=== PATIENT | female | born 1955 | race Caucasian/White ===

== ENCOUNTER → 2016-05-26 | Outpatient (CLI) | payer OTHER ==
--- NOTE | 2016-05-26 13:17 | CT ---
EXAMINATION TYPE: CT chest w con DATE OF EXAM: 05/26/2016 12:28 PM COMPARISON: 06/05/2014 HISTORY: cough, SOB, history of melanoma CT DLP: 629 mGycm, Automated exposure control for dose reduction was used. CONTRAST: Performed injected with 100 ml mL of Omnipaque 300. TECHNIQUE: Axial images were obtained at 5 mm thick sections. Reconstructed images are reviewed on [facility] computer in the coronal plane. FINDINGS: Portion of the thyroid visualized is normal. No suspicious lung nodules or focal infiltrates are present. No enlarged mediastinal or hilar adenopathy is evident. The ascending aorta diameter at the level o f the main pulmonary artery is 3.7 cm. The main pulmonary artery diameter at the bifurcation is 3.[address] sections are obtained through the upper abdomen. There is mild fatty infiltration within [facility] liver. Upper abdomen is otherwise unremarkable. There is a small splenule present. Scoliosis is present. IMPRESSIONS: 1. No suspicious acute changes.
== END | disposition home or self-care (01) ==
LOC: RADCTMAIN 11:59
PROVIDERS: ATTEND Internal Medicine Hematology & Oncology
DX: R05 Cough (principal); R06.02 Shortness of breath
CPT/HCPCS: 71260; Q9967

== ENCOUNTER 2017-01-05 11:58 | Day surgery (SDC) | payer OTHER ==
[2017-01-04 08:43] VITALS: BMI 33.2
[~2017-01-05 11:58] MED LIST: LACTATED RINGERS 1,000 ML IV SCH; LIDOCAINE 1% 20 ML VIAL (10MG/ML) FOR IV START INTRADERMA PRN
[2017-01-05 12:32] VITALS: RESP 16; TEMP 97.7
[2017-01-05] MEDS ORDERED: PROPOFOL 10 MG/ML 20 ML VIAL IV ONE (13:30)
--- NOTE | 2017-01-05 13:46 | P.PCN ---
Date of Procedure: 01/05/17 Procedure(s) Performed: BRIEF HISTORY: Patient is a 61-year-old pleasant female, scheduled for an elective colonoscopy as a part of evaluation of prior history of colon polyps. PROCEDURE PERFORMED: Colonoscopy. PREOPERATIVE DIAGNOSIS: History of colon polyps IV sedation per Anesthesia. PROCEDURE: After informed consent was obtained, the patient, was brought into the endoscopy unit. IV sedation was administered by Anesthesia under continuous monitoring. Digital rectal examination was normal. Initially the Olympus CF- 160 flexible video colonoscope was then inserted in the rectum, gradually advanced into the cecum without any difficulty. Careful examination was performed as the scope was gradually being withdrawn. Ileocecal valve and the appendiceal orifice were visualized and appeared normal. Prep was fair. Mucosa of the cecum, ascending colon, transverse colon, descending colon, sigmoid colon , and rectum appeared normal. Retroflexion was performed in the rectum and no lesions were seen. The patient tolerated the procedure well. IMPRESSION: Normal-appearing colon from rectum to cecum with no evidence of colorectal neoplasia RECOMMENDATIONS: Findings of this examination were discussed with the patient as well as a family. She was advised to have a repeat screening surveillance colonoscopy in 5 years from now because of the prior history of colon polyps.
[2017-01-05 14:03] VITALS: BP 144/88; PULSE 73
== END 2017-01-05 14:24 | disposition home or self-care (01) ==
LOC: ORWHC2ENDO 11:58
PROVIDERS: ATTEND Internal Medicine Gastroenterology
DX: Z12.11 Encounter for screening for malignant neoplasm of colon (principal); Z86.010 Personal history of colon polyps; I10 Essential (primary) hypertension; M06.9 Rheumatoid arthritis, unspecified; Z79.82 Long term (current) use of aspirin; Z79.899 Other long term (current) drug therapy
CPT/HCPCS: J2704; G0105

== ENCOUNTER → 2017-12-23 | Outpatient (CLI) | payer OTHER ==
--- NOTE | 2017-12-23 09:18 | MR ---
EXAMINATION TYPE: MR cspine/lspine wo con DATE OF EXAM: 12/23/2017 COMPARISON: Prior MRI lumbar spine June 07, 2014. Cervical spine x-ray February 29, 2012 HISTORY: Cervicalgia and Low back pain per order. Back pain with difficulty walking for years per pat ient with pain going into bilateral CALVES. Headache and neck pain causing pain or weakness into righ t arm for years per patient. TECHNIQUE: Multiplanar, multisequence imaging of the cervical lumbar spine are performed without IV c ontrast. FINDINGS: C-SPINE: Motion artifact degradation is present FINDINGS: Sagittal images of the cervical spine show the craniocervical junction to appear within nor mal limits. The cervical and upper thoracic spinal cord is normal in course, caliber, and signal. V ertebral alignment is anatomic. There is moderate disc space narrowing C5-C6 level redemonstrated. T he vertebral body and intravertebral disk heights otherwise are normal. Posterior disc herniation C5- C6 and C6-C7 level effacing anterior thecal sac are seen on sagittal images. The bone marrow signal intensity is within normal limits. No significant spurring is present. Axial images show the C2-C3, C3-C4, C4-C5 levels all to appear within normal limits. Axial images at the C5-C6 level show broad-based posterior disc protrusion effacing anterior thecal s ac and causing moderate bilateral neural foraminal narrowing. Axial images at C6-C7 level show broad-based posterior disc protrusion mildly effacing anterior theca l sac and causing mild to moderate left greater than right bilateral neural foraminal narrowing. Axial images at C7-T1 level are felt within normal limits. Thyroid gland is overall small in size particularly left thyroid lobe with subcentimeter nodule on th e left suspected axial image 13. IMPRESSION: Degenerative changes C5-C6 and C6-C7 level as detailed above. L-SPINE: Survey images redemonstrates dextroconvex scoliosis centered near thoracolumbar junction not signific antly changed. Sagittal images of the lumbar spine show vertebral body heights to remain satisfactory . There is straightening of lumbar spine redemonstrated on sagittal images. Multilevel disc desiccati on with mild disc space narrowing L3-L4 and moderate disc space narrowing L4-L5 levels is redemonstra ronald. Posterior disc herniations L3-L4 through L5-S1 level are redemonstrated on sagittal images. Ther e is heterogeneous Modic type II degenerative change anterior L4-L5 level redemonstrated. The conus m edullaris remains normal in position and signal ending superior L1 level. Axial images show the T12-L1, L1-L2, and L2-L3 levels all to remain within normal limits. Axial images at the L3-L4 level show mild facet degenerative changes bilaterally. There is mild to mo derate broad disc bulge effacing anterior thecal sac. There is mild left-sided anterior inferior neur al foraminal narrowing. Right-sided neural foramen is patent. No significant change from prior. Axial images at L4-L5 level show moderate broad disc bulge mildly effacing anterior thecal sac. There is mild facet degenerative changes bilaterally. There is asymmetric mild to moderate right-sided ant erior inferior neural foraminal narrowing seen. Left-sided neural foramen is patent. No significant c hange from prior. Axial images at L5-S1 level show mild facet degenerative changes bilaterally. There is central disc p rotrusion seen. Spinal canal is preserved. Bilateral neural foramina are patent. Paraspinal muscle bulk is maintained. No suspicious retroperitoneal findings are seen. IMPRESSION: Multilevel degenerative changes in the mid to lower lumbar spine as detailed above withou t significant change or progression from prior MRI.
== END ==
LOC: RADMRIMAIN 08:04
PROVIDERS: ATTEND Psychiatry & Neurology Neurology
DX: M47.816 Spondylosis without myelopathy or radiculopathy, lumbar region (principal); M47.812 Spondylosis without myelopathy or radiculopathy, cervical region
CPT/HCPCS: 72141; 72148

== ENCOUNTER → 2018-01-09 | Outpatient (CLI) | payer OTHER ==
--- NOTE | 2018-01-11 11:33 | MM ---
Reason for exam: screening (asymptomatic). Last mammogram was performed 1 year ago. History: Patient is postmenopausal and has history of other cancer at age 44. Family history of breast cancer in maternal aunt. Benign left breast aspiration of the left breast, January 27, 2012. Benign left US cyst aspiration of the left breast, January 15, 2011. Benign right US cyst aspiration of the right breast, November 17, 2007. Took estrogen for 1 year beginning at age 54. Physical Findings: A clinical breast exam by your physician is recommended on an annual basis and results should be correlated with mammographic findings. MG Screening Mammo w CAD Bilateral CC and MLO view(s) were taken. Prior study comparison: December 31, 2016, bilateral MG screening mammo w CAD. November 04, 2015, bilateral MG screening mammo w CAD. The breast tissue is heterogeneously dense. This may lower the sensitivity of mammography. There is chronic nodularity in the right breast. No significant changes when compared with prior studies. ASSESSMENT: Negative, BI-RAD 1 RECOMMENDATION: Routine screening mammogram of both breasts in 1 year.
== END | disposition home or self-care (01) ==
LOC: RADMAMWWP 13:16
PROVIDERS: ATTEND Internal Medicine Hematology & Oncology
DX: Z12.31 Encounter for screening mammogram for malignant neoplasm of breast (principal)
CPT/HCPCS: 77067

== ENCOUNTER → 2018-06-06 | Outpatient (CLI) | payer OTHER ==
--- NOTE | 2018-06-06 15:08 | XR ---
EXAMINATION TYPE: XR chest 2V DATE OF EXAM: 06/06/2018 COMPARISON: Chest x-ray October 28, 2015 HISTORY: Malignant melanoma. TECHNIQUE: Frontal and lateral views of the chest are obtained. FINDINGS: There is no focal air space opacity, pleural effusion, or pneumothorax seen. The cardiac silhouette size is within normal limits. The osseous structures remain demineralized. Underlying sc oliosis centered in the upper lumbar spine is redemonstrated. There is old fracture posterior lateral right seventh rib redemonstrated. IMPRESSION: No acute cardiopulmonary process. No significant change from prior chest x-ray.
== END | disposition home or self-care (01) ==
LOC: RADXRMAIN 14:14
PROVIDERS: ATTEND Internal Medicine Hematology & Oncology
DX: C43.9 Malignant melanoma of skin, unspecified (principal); D69.6 Thrombocytopenia, unspecified; E78.5 Hyperlipidemia, unspecified; I10 Essential (primary) hypertension
CPT/HCPCS: 71046

== ENCOUNTER → 2019-01-15 | Outpatient (CLI) | payer MEDICARE, OTHER ==
--- NOTE | 2019-01-17 10:54 | MM ---
Reason for exam: screening (asymptomatic). Last mammogram was performed 1 year ago. History: Patient is postmenopausal and has history of other cancer at age 44. Family history of breast cancer in maternal aunt. Benign left breast aspiration of the left breast, January 27, 2012. Benign left US cyst aspiration of the left breast, January 15, 2011. Benign right US cyst aspiration of the right breast, November 17, 2007. Took estrogen for 1 year beginning at age 54. Physical Findings: A clinical breast exam by your physician is recommended on an annual basis and results should be correlated with mammographic findings. MG Screening Mammo w CAD Bilateral CC and MLO view(s) were taken. Prior study comparison: January 09, 2018, bilateral MG screening mammo w CAD. December 31, 2016, bilateral MG screening mammo w CAD. The breast tissue is heterogeneously dense. This may lower the sensitivity of mammography. No significant changes when compared with prior studies. ASSESSMENT: Negative, BI-RAD 1 RECOMMENDATION: Routine screening mammogram of both breasts in 1 year.
== END | disposition home or self-care (01) ==
LOC: RADMAMWWP 07:55
PROVIDERS: ATTEND Internal Medicine Hematology & Oncology
DX: Z12.31 Encounter for screening mammogram for malignant neoplasm of breast (principal)
CPT/HCPCS: 77067

== ENCOUNTER → 2019-11-22 | Outpatient (CLI) | payer MEDICARE, OTHER ==
--- NOTE | 2019-11-22 18:26 | XR ---
EXAMINATION TYPE: XR chest 2V DATE OF EXAM: 11/22/2019 CLINICAL HISTORY: Essential hypertension. Chronic cough. TECHNIQUE: Frontal and lateral views of the chest are obtained. COMPARISON: Chest radiograph 06/06/2018 FINDINGS: The cardiomediastinal silhouette is within normal limits for size. There is tortuous cours e of the thoracic aorta redemonstrated. Pulmonary vasculature is normal. There is no focal air space opacity, pleural effusion, or pneumothorax seen. There is dextroscoliotic curvature of the thoracolum bar spine. IMPRESSION: No acute cardiopulmonary process.
== END | disposition home or self-care (01) ==
LOC: RADXRMAIN 10:27
PROVIDERS: ATTEND Internal Medicine Hematology & Oncology
DX: I10 Essential (primary) hypertension (principal); C43.9 Malignant melanoma of skin, unspecified; E78.5 Hyperlipidemia, unspecified
CPT/HCPCS: 71046

== ENCOUNTER → 2020-01-30 | Outpatient (CLI) | payer MEDICARE, OTHER ==
--- NOTE | 2020-01-30 21:54 | MR ---
EXAMINATION TYPE: MR brain wo/w con DATE OF EXAM: 01/30/2020 COMPARISON: None HISTORY: Tremors left hand, unsteady gait, hx head trauma 20+ years ago TECHNIQUE: Multiplanar, multisequence images of the brain and brainstem is performed without and with IV contras t, utilizing 7.5 mL intravenous Gadavist . FINDINGS: Diffusion weighted images demonstrate no evidence of a recent infarct or other diffusion ab normality. There is no extra-axial fluid collection. There are scattered hyperintensities within the periventricular, pericallosal, subcortical white matter on inversion recovery T2-weighted sequences, approximately 20-25 lesions are present. The largest in the right frontal lobe measures only approxi mately 7 mm on axial image 22. Some probable Virchow-Gray spaces present in the basal ganglia. The v entricular system and cisternal spaces are normal in size and appearance. The brain volume is age ap propriate. Midline structures demonstrate normal morphology. The craniocervical junction appears within normal limits. Post contrast images demonstrate no abnormal enhancement. The dural venous sinuses appear pa tent. The visualized sinuses are showing mucoperiosteal thickening in the maxillary sinuses, ethmoid air cells and the globes are intact. IMPRESSION: Nonspecific white matter demyelination could be related to chronic small vessel ischemia. Mild sinus disease.
== END | disposition home or self-care (01) ==
LOC: RADMRIMAIN 19:22
PROVIDERS: ATTEND Internal Medicine
DX: G37.9 Demyelinating disease of central nervous system, unspecified (principal)
CPT/HCPCS: 70553; A9585

== ENCOUNTER → 2020-03-07 | Outpatient (CLI) | payer MEDICARE, OTHER ==
--- NOTE | 2020-03-07 19:33 | US ---
EXAMINATION TYPE: US kidneys/renal and bladder DATE OF EXAM: 03/07/2020 COMPARISON: CT 2014 CLINICAL HISTORY: R94.4 Abnormal results of kidney function studies. EXAM MEASUREMENTS: Right Kidney: 10.5 x 3.8 x 4.3 cm Left Kidney: 9.3 x 4.7 x 4.3 cm Right Kidney: Possible nonobstructing stone mid to lower pole level measuring 0.5 x 0.3 x 0.6cm Left Kidney: No hydronephrosis or masses seen, lobular contour Bladder: wnl When scanning right kidney adjacent liver is heterogeneously hyperechoic consistent with fatty infilt ration. No hydronephrosis is noted bilaterally. No concerning solid or cystic masses are identified on images saved. The urinary bladder is satisfactorily distended. Bilateral ureteral jets are not seen. IMPRESSION: No hydronephrosis noted bilaterally.
== END | disposition home or self-care (01) ==
LOC: RADUSWWP 16:08
PROVIDERS: ATTEND Internal Medicine
DX: R94.4 Abnormal results of kidney function studies (principal)
CPT/HCPCS: 76770

== ENCOUNTER → 2020-03-13 | Outpatient (CLI) | payer MEDICARE, OTHER ==
--- NOTE | 2020-03-14 15:00 | MM ---
Reason for exam: screening (asymptomatic). Last mammogram was performed 1 year and 2 months ago. History: Patient is postmenopausal and has history of other cancer at age 44. Family history of breast cancer in maternal aunt. Benign left breast aspiration of the left breast, January 27, 2012. Benign left US cyst aspiration of the left breast, January 15, 2011. Benign right US cyst aspiration of the right breast, November 17, 2007. Took estrogen for 1 year beginning at age 54. Physical Findings: A clinical breast exam by your physician is recommended on an annual basis and results should be correlated with mammographic findings. MG Screening Mammo w CAD Bilateral CC and MLO view(s) were taken. Prior study comparison: January 15, 2019, bilateral MG screening mammo w CAD. January 09, 2018, bilateral MG screening mammo w CAD. The breast tissue is heterogeneously dense. This may lower the sensitivity of mammography. No significant changes when compared with prior studies. ASSESSMENT: Benign, BI-RAD 2 RECOMMENDATION: Routine screening mammogram of both breasts in 1 year.
== END | disposition home or self-care (01) ==
LOC: RADMAMWWP 14:07
PROVIDERS: ATTEND Internal Medicine Hematology & Oncology
DX: Z12.31 Encounter for screening mammogram for malignant neoplasm of breast (principal); Z80.3 Family history of malignant neoplasm of breast
CPT/HCPCS: 77067

== ENCOUNTER → 2020-03-19 | Outpatient (CLI) | payer MEDICARE, OTHER ==
--- NOTE | 2020-03-19 15:57 | BD ---
EXAMINATION TYPE: Axial Bone Density DATE OF EXAM: 03/19/2020 COMPARISON: NONE CLINICAL HISTORY: Age-related osteoporosis with current pathologic fracture Height: 4 FT 11 1/4 IN Weight: 175 FRAX RISK QUESTIONS: Alcohol (3 or more units per day): NO Family History (Parent hip fracture): NO Glucocorticoids (More than 3mos): NO (Ex: prednisone, prednisolone, methylprednisolone, dexamethasone, and hydrocortisone). History of Fracture in Adulthood: YES Secondary Osteoporosis: 1. Type 1 Diabetes: NO 2. Hyperthyroidism: NO 3. Menopause before 45: NO 4. Malnutrition: NO 5. Chronic liver disease: NO Rheumatoid Arthritis: YES Current Tobacco Use: NO RISK FACTORS HISTORY OF: Family History of Osteoporosis: YES Active: SOMEWHAT Diet low in dairy products/other sources of calcium: NO Postmenopausal woman: AGE 52 Take estrogen and/or progesterone medications: TOOK HRT FOR ONE MONTH AGE 52 Lost more than 2 inches in height since high school: YES Poor Health: YES MEDICATIONS: Additional Medications: METOPROLOL, LOSARTIN, AMLODIPINE, OMEPRAZOLE, LIPITOT, ASPIRIN ,HUMARA Additional History: SHOGRENS DISEASE , RHEUMATOID ARTHRITIS EXAM MEASUREMENTS: Bone mineral densitometry was performed using the [employer] System. Bone mineral density as measured about the Lumbar spine is: ----- L1-L4(G/cm2): 1.071 T Score Values are as follows: ----- L2: -1.1 ----- L3: -0.7 ----- L4: -1.0 ----- L1-L4: -0.9 Bone mineral density has: DECREASED -0.6 % since study of: 2015 Bone mineral density about the R hip (g/cm2): 0.849 Bone mineral density about the L hip (g/cm2): 0.782 T Score values are as follows: -----R Neck: -1.4 -----L Neck: -1.8 -----R Total: -0.6 -----L Total: -0.4 Bone mineral density has: DECREASED -2.4 % since study of: 2016 IMPRESSION: Osteopenia (T Score between -2.5 and -1). There is slightly increased risk of fracture and the patient may be considered for treatment. Re-Screen 2-5 years. NOTE: T-SCORE=SD OF THE YOUNG ADULT MEAN.
== END | disposition home or self-care (01) ==
LOC: RADBDWWP 14:51
PROVIDERS: ATTEND Internal Medicine
DX: M85.80 Other specified disorders of bone density and structure, unspecified site (principal)
CPT/HCPCS: 77080

== ENCOUNTER → 2020-03-28 | Outpatient (CLI) | payer MEDICARE, OTHER ==
--- NOTE | 2020-03-29 07:57 | NM ---
EXAMINATION TYPE: NM DatScan Brain SPECT DATE OF EXAM: 03/28/2020 COMPARISON: NONE HISTORY: Trauma TECHNIQUE: 10 drops of Lugol's solution was administered 1 hour prior to injection as a thyroid bloc lisa agent. After the administration of 4.4 mCi I-123 Ioflupane DaTscan. Images obtained [address] injection. SPECT images of the brain were acquired with axial and coronal reconstructions. . FINDINGS: The axial SPECT images demonstrate normal background activity. Accounting for head tilt, t here appears to be slight asymmetrically blunted comma-shaped appearance of the right corpus striatum . IMPRESSION: Slightly blunted striatal activity on the right may indicate early changes of idiopathic Parkinson's disease or Parkinsonian syndrome.
== END | disposition home or self-care (01) ==
LOC: RADNMMAIN 10:51
PROVIDERS: ATTEND Psychiatry & Neurology Neurology
DX: R94.02 Abnormal brain scan (principal); G25.0 Essential tremor
CPT/HCPCS: 78803; A9584

== ENCOUNTER → 2021-03-30 | Outpatient (CLI) | payer MEDICARE ==
--- NOTE | 2021-03-30 13:31 | XR ---
EXAMINATION TYPE: XR chest 2V DATE OF EXAM: 03/30/2021 COMPARISON: Chest x-ray November 22, 2019 HISTORY: COVID +8 days ago with persistent cough TECHNIQUE: Frontal and lateral views of the chest are obtained. FINDINGS: There is no suspicious new focal air space opacity, pleural effusion, or pneumothorax seen . The cardiac silhouette size is stable and upper limits of normal. Overlying bra strap. Old fract ure deformity of the posterior lateral right seventh rib redemonstrated. IMPRESSION: No new acute pulmonary process. No significant change from prior.
== END | disposition home or self-care (01) ==
LOC: RADXRMAIN 12:50
PROVIDERS: ATTEND Internal Medicine
DX: U07.1 COVID-19 (principal)
CPT/HCPCS: 71046

== ENCOUNTER → 2021-05-05 | Outpatient (CLI) | payer MEDICARE, OTHER ==
--- NOTE | 2021-05-06 10:09 | MM ---
Reason for exam: screening (asymptomatic). Last mammogram was performed 1 year and 2 months ago. History: Patient is postmenopausal and has history of other cancer at age 44. Family history of breast cancer in maternal aunt. Benign left breast aspiration of the left breast, January 27, 2012. Benign left US cyst aspiration of the left breast, January 15, 2011. Benign right US cyst aspiration of the right breast, November 17, 2007. Took estrogen for 1 year beginning at age 54. Physical Findings: A clinical breast exam by your physician is recommended on an annual basis and results should be correlated with mammographic findings. MG Screening Mammo w CAD Bilateral CC and MLO view(s) were taken. Prior study comparison: March 13, 2020, bilateral MG screening mammo w CAD. January 15, 2019, bilateral MG screening mammo w CAD. The breast tissue is heterogeneously dense. This may lower the sensitivity of mammography. There is no discrete abnormality. No significant changes when compared with prior studies. ASSESSMENT: Negative, BI-RAD 1 RECOMMENDATION: Routine screening mammogram of both breasts in 1 year.
== END | disposition home or self-care (01) ==
LOC: RADMAMWWP 14:42
PROVIDERS: ATTEND Internal Medicine Hematology & Oncology
DX: Z12.31 Encounter for screening mammogram for malignant neoplasm of breast (principal); Z78.0 Asymptomatic menopausal state; Z80.3 Family history of malignant neoplasm of breast
CPT/HCPCS: 77067

== ENCOUNTER → 2021-05-11 | Outpatient (CLI) | payer MEDICARE, OTHER ==
--- NOTE | 2021-05-11 16:28 | XR ---
EXAMINATION TYPE: XR hand complete LT DATE OF EXAM: 05/11/2021 CLINICAL HISTORY: Pain after falling onto left hand. TECHNIQUE: Frontal, lateral and oblique images of the left hand are obtained. COMPARISON: None. FINDINGS: Osseous structures are demineralized noted lower radiographic sensitivity. There is acute comminuted slightly displaced suspected intra-articular fracture through the base of fifth metacarpal . Mild to moderate adjacent soft tissue swelling at this level is seen. Remainder joint spaces are pr eserved. IMPRESSION: As above. A Yellow level critical message alert has been initiated for Akilah Hendrix MD via the [email or web address] Critical Results System on 05/11/2021 4:25 PM. This message alert has been sent to Akilah Hendrix MD via the preferences provided by the clinician for the receipt of Radiology Critical Findings. Message ID [id number].
== END | disposition home or self-care (01) ==
LOC: RADXRMAIN 15:32
PROVIDERS: ATTEND Internal Medicine
DX: M79.642 Pain in left hand (principal); S69.92XA Unspecified injury of left wrist, hand and finger(s), initial encounter

== ENCOUNTER → 2021-05-19 | Outpatient (CLI) | payer MEDICARE, OTHER ==
--- NOTE | 2021-05-19 16:16 | CT ---
EXAMINATION TYPE: CT brain wo con DATE OF EXAM: 05/19/2021 HISTORY: fell hitting head on cement with intractable headache CT DLP: 1036 mGycm. Automated Exposure Control for Dose Reduction was Utilized. TECHNIQUE: CT scan of the head is performed without contrast. COMPARISON: MRI brain January 30, 2020. FINDINGS: There is no acute intracranial hemorrhage or midline shift identified. There is mild diff use ventricular and sulcal prominence consistent with diffuse age-related cerebral atrophy. Lux-whit e matter differentiation fairly well-preserved. The calvarium is intact. Hyperostosis frontalis is pr esent. Patchy opacification lateral aspect left sphenoid sinus otherwise the paranasal sinuses are cl ear. The globes are intact bilaterally. Low-lying cerebellar tonsils into the foramen magnum withou t definitive greater than 5 mm inferior or suspicious inferior beaking to diagnose Chiari type I malf ormation. IMPRESSION: No acute intracranial hemorrhage or midline shift. There is mild diffuse age-related ce rebral atrophy redemonstrated. Low lying cerebellar tonsils or ectopia correlate with MRI, no defini tive Chiari type I malformation. Mild chronic small vessel ischemic changes on MRI are not as well ap preciated on CT. Patchy mild left-sided sphenoid sinusitis current study.
== END | disposition home or self-care (01) ==
LOC: RADCTMAIN 15:32
PROVIDERS: ATTEND Internal Medicine
DX: G31.89 Other specified degenerative diseases of nervous system (principal); I67.82 Cerebral ischemia
CPT/HCPCS: 70450

== ENCOUNTER → 2021-09-10 | Outpatient (CLI) | payer MEDICARE, OTHER ==
--- NOTE | 2021-09-10 15:50 | XR ---
EXAMINATION TYPE: XR shoulder complete BILAT DATE OF EXAM: 09/10/2021 COMPARISON: NONE HISTORY: Pain TECHNIQUE: Three views are submitted. FINDINGS: The osseous structures are intact. There is no acute fracture or dislocation. The AC joint is maint ained. Chronic deformity of the right rib cage. Mild diffuse osteopenia. There is moderate arthropat hy of the left AC joint. IMPRESSION: 1. Moderate left AC joint arthropathy. Correlate with MRI if concern for rotator cuff disease.
== END | disposition home or self-care (01) ==
LOC: RADXRMAIN 15:20
PROVIDERS: ATTEND Internal Medicine
DX: M19.011 Primary osteoarthritis, right shoulder (principal)

== ENCOUNTER → 2021-10-03 | Outpatient (CLI) | payer MEDICARE, OTHER ==
--- NOTE | 2021-10-03 10:22 | MR ---
EXAMINATION TYPE: MR shoulder LT wo con DATE OF EXAM: 10/03/2021 10:07 AM COMPARISON: NONE HISTORY: Left shoulder pain, decreased ROM x 3 weeks, no trauma. TECHNIQUE: Multiplanar multispin echo imaging of the left shoulder was performed. 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 There is no complete or bursal/articular sided partial rotator cuff tear. The subsc apularis constituent of the rotator cuff is intact. Bursa: No bursal effusion or thickening is seen. Musculature: There is no muscular tear, contusion, or atrophy. Acromioclavicular joint : There are mild degenerative changes of the acromioclavicular joint. There Is no anterior or lateral acromial downsloping. Osseous structures : There are no fractures or regions of abnormal bone marrow signal intensity. Long biceps tendon : The biceps tendon is normally situated within the bicipital groove. No complete or partial biceps tendon tear is present. Glenohumeral Joint fluid : There is no glenohumeral joint effusion. Cartilage and Bone : No focal hyaline cartilage defects are noted. No Hill-Sachs, reverse Hill-Sachs, or bony Bankart lesions are seen. Labrum : There are no SLAP or soft tissue Bankart lesions. No paralabral cysts are seen. OTHER FINDINGS : none IMPRESSION: 1. Mild chronic tendinopathy supraspinatus tendon.
== END | disposition home or self-care (01) ==
LOC: RADMRIMAIN 09:29
PROVIDERS: ATTEND Internal Medicine
DX: M75.102 Unspecified rotator cuff tear or rupture of left shoulder, not specified as traumatic (principal)

== ENCOUNTER → 2022-10-05 | Outpatient (CLI) | payer MEDICARE, OTHER | END | disposition home or self-care (01) | LOC: LABWHC1 12:56 | DX: Z53.9 Procedure and treatment not carried out, unspecified reason (principal) ==

== ENCOUNTER → 2022-11-05 | Outpatient (CLI) | payer MEDICARE, OTHER ==
--- NOTE | 2022-11-07 21:36 | CT ---
EXAMINATION TYPE: High-resolution CT chest DATE OF EXAM: 11/05/2022 COMPARISON: 05/26/2016 HISTORY: 67-year-old female R06.02, SOB. Pt had recent Sx and her O2 levels did not improve after Sx. TECHNIQUE: High resolution CT chest without contrast utilizing 1 mm slice thickness and 1 cm gap or H RCT protocol. Both prone and supine imaging is performed. CT DLP: 1231.5 mGycm Automated exposure control for dose reduction was used. FINDINGS: The heart is normal size without pericardial effusion. Ectatic ascending aorta 3.8 cm. Bovine configuration to the aortic arch. Mildly enlarged caliber to the main right and left pulmonary arteries measuring up to 2.7 cm suggesti ng underlying pulmonary arterial hypertension. No thoracic lymphadenopathy by CT size criteria. There is mild diffuse bronchial wall thickening. Some minimal strandy scarring at the lung bases richar ins unchanged from 2017. No consolidation or pleural effusion. No honeycombing or dominant groundglas s changes. No bronchiectasis or subpleural microcystic change. No thickening of the bronchovascular b undles are perilymphatic nodularity. HRCT technique is limited for assessment of small pulmonary nodu les. Visualized upper abdomen shows no gross abnormal body. There is a small anterior splenule. Dextroconvex scoliotic curvature. IMPRESSION: 1. NO SPECIFIC HRCT FINDINGS OF INTERSTITIAL LUNG DISEASE. 2. MILD BRONCHIAL WALL THICKENING COULD REFLECT BRONCHITIS OR ASTHMA. 3. SIMILAR STRANDY SCARRING OR ATELECTASIS IN THE LOWER LUNGS COMPARED TO 2017. 4. POSSIBLE UNDERLYING PULMONARY ARTERIAL HYPERTENSION. 5. DEXTROCONVEX SCOLIOSIS.
== END | disposition home or self-care (01) ==
LOC: RADCTMAIN 15:14
PROVIDERS: ATTEND Internal Medicine
DX: J98.09 Other diseases of bronchus, not elsewhere classified (principal); R06.02 Shortness of breath; M41.86 Other forms of scoliosis, lumbar region
CPT/HCPCS: 71250

== ENCOUNTER → 2023-09-01 | Outpatient (CLI) | payer MEDICARE ==
--- NOTE | 2023-09-07 11:58 | MM ---
Reason for Exam: Screening (asymptomatic). Last mammogram was performed 2 year(s) and 4 month(s) ago. Patient History: Menarche at age 14. First Full-Term at age 21. Left ovary removed at age 54. Right ovary removed at age 54. Hysterectomy at age 54. Postmenopausal. Other cancer, age 44. Estrogen for 1 year from age 54 until age 55. 01/27/2012, Benign Cyst Aspiration on the left side. 01/15/2011, Benign Cyst Aspiration on the left side. 11/17/2007, Benign Cyst Aspiration on the right side. Maternal aunt had breast cancer. Risk Values: Jenn 5 year model risk: 1.2%. NCI Lifetime model risk: 4.4%. Prior Study Comparison: 11/04/2015 Bilateral Screening Mammogram, [facility]. 12/31/2016 Bilateral Screening Mammogram, [facility]. 01/09/2018 Bilateral Screening Mammogram, [facility]. 01/15/2019 Bilateral Screening Mammogram, [facility]. 03/13/2020 Bilateral Screening Mammogram, [facility]. 05/05/2021 Bilateral Screening Mammogram, [facility]. Tissue Density: The breasts are heterogeneously dense, which may obscure small masses. Findings: Analyzed By CAD. There is no suspicious group of microcalcifications or new suspicious mass in either breast. Benign-appearing calcifications. Chronic nodularity right breast related to a benign lymph node stable. Overall Assessment: Benign, BI-RAD 2 Management: Screening Mammogram of both breasts in 1 year. . Patient should continue monthly self-breast exams. A clinical breast exam by your physician is recommended on an annual basis. This exam should not preclude additional follow-up of suspicious palpable abnormalities. Note on Jenn scores and lifetime risk: 1. A Jenn score greater than 3% is considered moderate risk. If this is the case, consider specialist referral to assess eligibility for a risk reducing agent. 2. If overall lifetime risk for the development of breast cancer is 20% or higher, the patient may qualify for future screening with alternating mammogram and breast MRI. Electronically signed and approved by: Edwin Bejarano M.D. Radiologis
--- NOTE | 2023-09-08 22:46 | BD ---
EXAMINATION TYPE: Axial Bone Density DATE OF EXAM: 09/01/2023 CLINICAL HISTORY: 68 years old Female. ICD-10 CODE: M810 AGE RELATED OSTEOP Height: 59in Weight: 189lb FRAX RISK QUESTIONS: Glucocorticoids (More than 3mos): yes, for 6 months (Ex: prednisone, prednisolone, methylprednisolone, dexamethasone, and hydrocortisone). History of Fracture in Adulthood: yes Secondary Osteoporosis: Rheumatoid Arthritis: yes RISK FACTORS HISTORY OF: MEDICATIONS: EXAM MEASUREMENTS: Bone mineral densitometry was performed using the 2 Minutes System. Bone mineral density as measured about the Lumbar spine is: ----- L1-L4(G/cm2): 1.019 T Score Values are as follows: ----- L1: -1.5 ----- L2: -1.6 ----- L3: -0.7 ----- L4: -1.6 ----- L1-L4: -1.3 Z Score Values are as follows: ----- L1: -0.6 ----- L2: -0.7 ----- L3: 0.2 ----- L4: -0.7 ----- L1-L4: -0.4 Bone mineral density has: Decreased -4.9% since study of: 03-19-20 Bone mineral density about the R hip (g/cm2): 0.872 Bone mineral density about the L hip (g/cm2): 0.935 T Score values are as follows: -----R Neck: -2.0 -----L Neck: -1.9 -----R Total: -1.1 -----L Total: -0.6 Z Score values are as follows: -----R Neck: -0.9 -----L Neck: -0.9 -----R Total: -0.3 -----L Total: 0.2 Bone mineral density has: Decreased -4.2% since study of: 03-19-20 FRAX%s: The graph provided illustrates a 20.6% chance for a major osteoporotic fx and a 3.4% chance f or the hips probability for fx in 10 years time. IMPRESSION: Osteopenia (T Score between -2.5 and -1). There is slightly increased risk of fracture and the patient may be considered for treatment. Re-Screen 2-5 years. NOTE: T-SCORE=SD OF THE YOUNG ADULT MEAN.
== END | disposition home or self-care (01) ==
LOC: RADMAMWWP 12:50
PROVIDERS: ATTEND Internal Medicine
DX: Z12.31 Encounter for screening mammogram for malignant neoplasm of breast (principal); M81.0 Age-related osteoporosis without current pathological fracture; Z78.0 Asymptomatic menopausal state; Z80.3 Family history of malignant neoplasm of breast
CPT/HCPCS: 77063; 77067; 77080

== ENCOUNTER → 2023-10-11 | Outpatient (CLI) | payer MEDICARE ==
--- NOTE | 2023-10-11 10:22 | XR ---
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 COMPARISON: None. TECHNIQUE: Both hips were examined in the frontal and lateral projections and a AP pelvis. FINDINGS: No evidence of any acute osseous pathology, joint dislocation, or soft tissue swelling. Pel abeba phlebolith identified. Diffuse bone demineralization. IMPRESSION: No acute osseous pathology.
== END | disposition home or self-care (01) ==
LOC: RADXRMAIN 09:38
PROVIDERS: ATTEND Internal Medicine Rheumatology
DX: M15.9 Polyosteoarthritis, unspecified (principal); M05.741 Rheumatoid arthritis with rheumatoid factor of right hand without organ or systems involvement; M05.742 Rheumatoid arthritis with rheumatoid factor of left hand without organ or systems involvement
CPT/HCPCS: 73521

== ENCOUNTER → 2024-01-02 | Outpatient (CLI) | payer MEDICARE ==
--- NOTE | 2024-01-02 11:56 | XR ---
EXAMINATION TYPE: XR thoraco lumbar junction DATE OF EXAM: 01/02/2024 COMPARISON: NONE HISTORY: Pain TECHNIQUE: 2 views of the thoracolumbar spine are submitted. FINDINGS: There is severe rotoscoliosis convex to the right. No obvious compression fracture is seen. At least moderate degenerative changes are seen throughout. IMPRESSION: As above [facility], , 01/02/2024 11:53 AM
== END | disposition home or self-care (01) ==
LOC: RADXRMAIN 11:17
PROVIDERS: ATTEND Internal Medicine Rheumatology
DX: M05.741 Rheumatoid arthritis with rheumatoid factor of right hand without organ or systems involvement (principal); M05.742 Rheumatoid arthritis with rheumatoid factor of left hand without organ or systems involvement; M41.85 Other forms of scoliosis, thoracolumbar region
CPT/HCPCS: 72080

== ENCOUNTER → 2024-08-01 | Outpatient (CLI) | payer MEDICARE ==
--- NOTE | 2024-08-01 13:51 | US ---
EXAMINATION TYPE: US venous doppler duplex LE DATE OF EXAM: 08/01/2024 1:39 PM COMPARISON: NONE CLINICAL INDICATION: Female, 69 years old with history of R60.0 LEG EDEMA; Hx superficial clot with p rocedure on veins 40 years ago, pt thinks her vein was removed in right leg. Pt does not take blood t hinners. TECHNIQUE: The lower extremity deep venous system is examined utilizing real time linear array sonog mally with graded compression, color doppler sonography, and spectral doppler. SIDE PERFORMED: Bilateral FINDINGS: VESSELS IMAGED: Common Femoral Vein Deep Femoral Vein Greater Saphenous Vein * Femoral Vein Popliteal Vein Small Saphenous Vein * Proximal Calf Veins (* superficial vessels) Right Leg: Pt states she had a surgery in her vein in her right leg, she states she had a vein rem rodger 40 years ago. *Internal echoes seen in right GSV right up to the junction with the CFV (deep system). No color flow seen in portion of GSV visualized. GSV appears noncompressible. Unable to follow GSV past the upper thigh - ?unclear history. No evidence of DVT at this time. Left Leg: No evidence of DVT. IMPRESSION: 1. No deep venous thrombosis within the bilateral lower extremities evident by ultrasound. 2. Internal echoes within the right greater saphenous vein extending towards the common femoral vein. This is noncompressible. Some superficial venous thrombosis may be present. [facility], Workstation: [facility], 08/01/2024 1:49 PM
== END | disposition home or self-care (01) ==
LOC: RADUSWWP 13:10
PROVIDERS: ATTEND Internal Medicine
DX: R60.0 Localized edema (principal)
CPT/HCPCS: 93970

== ENCOUNTER → 2024-09-13 | Outpatient (CLI) | payer MEDICARE ==
--- NOTE | 2024-09-17 11:10 | MM ---
Reason for Exam: Additional evaluation requested from abnormal screening. Last screening mammogram was performed less than 1 month ago. Patient History: Menarche at age 14. First Full-Term at age 21. Left ovary removed at age 54. Right ovary removed at age 54. Hysterectomy at age 54. Postmenopausal. Other cancer, age 44. Estrogen for 1 year from age 54 until age 55. 01/27/2012, Benign Cyst Aspiration on the left side. 01/15/2011, Benign Cyst Aspiration on the left side. 11/17/2007, Benign Cyst Aspiration on the right side. Maternal aunt had breast cancer, age 58. Risk Values: Jenn 5 year model risk: 1.2%. NCI Lifetime model risk: 4.2%. Prior Study Comparison: 05/05/2021 Bilateral Screening Mammogram, [facility]. 09/01/2023 Bilateral MG 3D screening mammo w/cad, [facility]. 09/10/2024 Bilateral MG 3D screening mammo w/cad, [facility]. Tissue Density: Left: There are scattered areas of fibroglandular density. Findings: Analyzed By CAD. Grouped calcifications left breast in the upper lateral aspect 5.8 cm from nipple are suspicious. Some of these calcifications are pleomorphic. Overall Assessment: Suspicious, BI-RAD 4 Management: Stereotactic Core Biopsy of the left breast. Results were given to the patient verbally at the time of exam. Patient should continue monthly self-breast exams. A clinical breast exam by your physician is recommended on an annual basis. This exam should not preclude additional follow-up of suspicious palpable abnormalities. Note on Jenn scores and lifetime risk: 1. A Jenn score greater than 3% is considered moderate risk. If this is the case, consider specialist referral to assess eligibility for a risk reducing agent. 2. If overall lifetime risk for the development of breast cancer is 20% or higher, the patient may qualify for future screening with alternating mammogram and breast MRI. [facility], , 09/13/2024 12:10 PM. Electronically signed and approved by: Mikie Jacobs DO
== END | disposition home or self-care (01) ==
LOC: RADMAMWWP 11:26
PROVIDERS: ATTEND Internal Medicine
DX: R92.8 Other abnormal and inconclusive findings on diagnostic imaging of breast (principal); R92.322 Mammographic fibroglandular density, left breast; R92.1 Mammographic calcification found on diagnostic imaging of breast; Z78.0 Asymptomatic menopausal state; Z80.3 Family history of malignant neoplasm of breast
CPT/HCPCS: 77065; G0279; 77061

== ENCOUNTER → 2024-09-20 | Day surgery (SDC) | payer MEDICARE ==
[~2024-09-20] MED LIST changes: +ALPRAZolam 0.25 MG TAB PO PRN; -LACTATED RINGERS 1,000 ML IV SCH; -LIDOCAINE 1% 20 ML VIAL (10MG/ML) FOR IV START INTRADERMA PRN
[2024-09-20 10:18] VITALS: RESP 16
[2024-09-20 11:22] VITALS: BP 134/85; PULSE 76; TEMP 98.4
--- NOTE | 2024-09-28 09:25 | MM ---
Risk Values: Jenn 5 year model risk: 1.2%. NCI Lifetime model risk: 4.2%. Prior Study Comparison: 09/01/2023 Bilateral MG 3D screening mammo w/cad, [facility]. 09/10/2024 Bilateral MG 3D screening mammo w/cad, [facility]. 09/13/2024 Left MG 3D work up w/cad , [facility]. Pathology Description: Marker Left Behind. Specimen Radiograph. Calcium Found: Yes Approach: Lateral to Medial Needle Type: Eviva Cores: 14 Skin Nicks: 1 Gauge: 9 The procedure of stereotactic guided core biopsy was explained to the patient. Benefits, alternatives, and risks were discussed. An informed consent was then obtained. The shortness pathway for biopsy was chosen. Shortness pathway was lateral approach. A vacuum assisted biopsy gun was used to obtain multiple core samples. The patient tolerated the procedure well without any immediate complication. The patient was kept in the radiology department for short stay after the procedure and then discharged home in stable condition. Targeted calcifications are identified in specimen mammogram. Patient was taken to a dedicated mammography suite for post procedure clip placement verification.Post biopsy mammogram shows the clip to appear in satisfactory position relative to the targeted area of concern on the preprocedure images. Impression: SUCCESSFUL, UNCOMPLICATED STEREOTACTIC GUIDED CORE BIOPSY OF AREA OF CONCERN IN THE left BREAST. Pathology Results: Result: Malignant, Ductal carcinoma in situ, comedo type. Pathology and radiology were reviewed. Findings are concordant. 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 Overall Assessment: Malignant Management: Surgical Consultation of the left breast. Electronically signed and approved by: Edwin Bejarano M.D. Radiologis
== END ==
LOC: RADMAMWWP 09:53
PROVIDERS: ATTEND Surgery
DX: D05.12 Intraductal carcinoma in situ of left breast (principal); Z17.0 Estrogen receptor positive status [ER+]
CPT/HCPCS: 88305; 88342; 88341; 19081; A4648; J2003

== ENCOUNTER 2024-10-05 06:32 | Day surgery (SDC) | payer MEDICARE ==
[2024-10-05] MEDS ORDERED: HYDROmorphone 0.5 MG/0.5 ML SYRINGE IVP PRN (07:00)
[2024-10-05] MEDS: IV FLUID CONTINUATION 1,000 ML IV ONE (07:06)
[2024-10-05] MEDS: LIDOCAINE 1% INJ 10MG/ML (20 ML MDV) SQ ONE (08:28)
[2024-10-05] MEDS: SODIUM BICARB 8.4% 50 ML VIAL (1 MEQ/ML) MISCELLANE ONE (08:28)
[2024-10-05] MEDS: ACETAMINOPHEN TAB 500 MG TAB PO PRN (09:18)
[2024-10-05] MEDS: LACTATED RINGERS 1,000 ML IV SCH (09:19)
[2024-10-05] MEDS: DEXAMETHASONE SOD PHOSPHATE 4 MG/ML 1 ML VIAL IV ONE (09:19)
[2024-10-05] MEDS: HEPARIN SODIUM,PORCINE 5,000 UNIT/ML 1 ML VIAL SQ PRN (09:19)
[2024-10-05] MEDS: ONDANSETRON 4 MG/2 ML VIAL IVP ONE (09:19)
--- NOTE | 2024-10-05 10:12 | NM ---
EXAMINATION TYPE: NM sentinel node injection DATE OF EXAM: 10/05/2024 COMPARISON: NONE CLINICAL INDICATION: Female, 69 years old with history of C50.912 LEFT BREAST CANCER; TECHNIQUE AND FINDINGS: The procedure of sentinel lymph node injection was explained to the patient. The benefits, alternatives, and risks were discussed. An informed consent was then obtained. Overlying skin is cleaned with sterile alcohol. Following this, 529 uCi Tc99m Tilmanocept was inject ed in the upper outer aspect of the left nipple intradermally. The patient tolerated the procedure well without any immediate complication. The patient was kept in the radiology department for short stay after the procedure and then taken to surgery for surgical p rocedure what is presumed intraoperative gamma probe will be used for sentinel lymph node detection. IMPRESSION: left breast radiotracer injection for sentinel node localization as above. [facility], , 10/05/2024 10:09 AM
[2024-10-05] MEDS ORDERED: MIDAZOLAM 2 MG/2 ML VIAL ONE (10:24)
[2024-10-05] MEDS ORDERED: PHENYLEPHRINE-0.9% NACL SYG 1,000 MCG/10 ML SYRINGE ONE (10:24)
[2024-10-05] MEDS ORDERED: GLYCOPYRROLATE 0.2 MG/ML 2 ML VIAL ONE (10:24)
[2024-10-05] MEDS ORDERED: fentaNYL (PF) 50 MCG/ML 2 ML AMP ONE (10:24)
[2024-10-05] MEDS ORDERED: PROPOFOL 10 MG/ML 20 ML VIAL IV ONE (10:24)
[2024-10-05] MEDS ORDERED: SUCCINYLCHOLINE CHLORIDE 200 MG/10 ML VIAL IV ONE (10:24)
[2024-10-05] MEDS ORDERED: LIDOCAINE 1% INJ 10MG/ML (20 ML MDV) ONE (10:24)
[2024-10-05] MEDS ORDERED: ROCURONIUM 10 MG/ML (5 ML VIAL) IV ONE (10:24)
--- NOTE | 2024-10-05 12:14 | P.OP ---
Date of Procedure: 10/05/24 Procedure(s) Performed: PREOPERATIVE DIAGNOSIS: Left breast cancer POSTOPERATIVE DIAGNOSIS: Same PROCEDURE: Left breast wire localization lumpectomy with sentinel lymph node biopsy SURGEON: Kathya EBL: Minimal ANESTHESIA: General COMPLICATIONS: None OPERATIVE PROCEDURE: Patient was placed on the operating room table in the supine position. 2 mL of methylene blue was injected into the subareolar space. The breast was then massaged for 5 minutes. The breast was prepped and draped in usual sterile fashion. The left axilla was addressed at that time. The hot spot in the left axilla was identified. A small curvilinear incision was made using the scalpel. Dissection down through the subcutaneous tissues took place using electrocautery. Using the neoprobe I identified a total of 2 sentinel lymph nodes. 1 of these were blue in color. These had benign exam characteristics. These were both removed and sent to pathology for permanent sectioning. The surgical site was inspected and no bleeding was seen. The subcutaneous tissues were closed using 3-0 Vicryl sutures. The skin was closed using 4-0 Monocryl sutures. The wire entrance sites were then addressed. These were present at the 3:00 location. A curvilinear incision was made adjacent to the wire entrance sites. The wires were brought out through the curvilinear incision between the 2 wires. I followed the wires down into the breast tissue. An adequate lumpectomy specimen then took place around the wires. Margins of 1.5-2 cm worth attempted to be achieved. Palpation of the specimen suggested that the lateral margin was somewhat close. I took an additional margin aterally and this margin was painted the appropriate color on the new margin side. The initial specimen was also painted the appropriate 6 colors. Clips were used to identify the lumpectomy cavity. The clip was confirmed to be within the lumpectomy specimen by radiology. The subcutaneous tissues were closed using 3-0 Vicryl sutures. The skin was closed using a running 4-0 Monocryl stitch. Skin glue was then applied. DISPOSITION: Stable to recovery room
[2024-10-05 12:24] VITALS: TEMP 97
[2024-10-05] MEDS: MELOXICAM 7.5 MG TAB PO SCH (12:52)
[2024-10-05 13:16] VITALS: RESP 16
[2024-10-05] MEDS: HYDROcodone/APAP 5-325MG 1 EACH TAB PO STA (13:17)
[2024-10-05 13:35] VITALS: BP 127/73; PULSE 74
[2024-10-05] MEDS ORDERED: ACETAMINOPHEN TAB 325 MG TAB PO SCH (18:00)
== END 2024-10-05 14:00 | disposition home or self-care (01) ==
LOC: OR 06:32
PROVIDERS: ATTEND Surgery
DX: C50.912 Malignant neoplasm of unspecified site of left female breast (principal)
CPT/HCPCS: 19301; 38525; 76098; 19281; 38792; A9520; J2250; J0330; J1644; J1100; J0690; J2405; J2003; J3010; J2704; J2371; J1596